=== PATIENT | female | born 1990 | race Caucasian/White ===

== ENCOUNTER 2016-06-28 10:09 | Emergency (ER) | payer SELFPAY ==
[2016-06-28 10:12] VITALS: BP 130/73; PULSE 111; TEMP 99.7; BMI 30.9
--- NOTE | 2016-06-28 10:31 | PDOC ---
History of Present Illness - General Chief Complaint: Sore Throat Stated Complaint: SORE THROAT Time Seen by Provider: 06/28/16 10:25 History Source: Patient Exam Limitations: No Limitations - History of Present Illness Initial Comments: 06/28/16 11:34 Chief complaint: Sore throat since yesterday History of present illness: Pt.is a 26-year-old female with no significant medical problems here today complaining of sore throat since yesterday. Patient also reports having slight nasal congestion. Patient denies having any fever. Patient denies any shortness of breath or difficulty swallowing. Patient denies any recent travel or sick contacts. Timing/Duration: getting worse Severity: moderate Associated Symptoms: reports: other (w) Past History - Past Medical History Allergies/Adverse Reactions: Allergies Allergy/AdvReac Type Severity Reaction Status Date / Time nuts Allergy Uncoded 06/28/16 10:12 Home Medications: Ambulatory Orders Penicillin V Potassium [Pen Vee K -] 500 mg PO QID #28 tablet 06/28/16 - Psycho/Social/Smoking Cessation Hx Anxiety: No Suicidal Ideation: No Smoking History: Never smoked Have you smoked in the past 12 months: No Information on smoking cessation initiated: No Hx Alcohol Use: No Substance Use Type: None Review of Systems - Review of Systems Able to Perform ROS?: Yes Constitutional: No: Symptoms Reported HEENTM: Yes: Nose Congestion (slight ), Throat Pain Respiratory: No: Symptoms reported Cardiac (ROS): No: Symptoms Reported ABD/GI: No: Symptoms Reported Musculoskeletal: No: Symptoms Reported Integumentary: No: Symptoms Reported Neurological: No: Symptoms reported *Physical Exam - Vital Signs Last Vital Signs Temp Pulse Resp BP Pulse Ox 99.7 F H 111 H 18 130/73 99 06/28/16 10:10 06/28/16 10:10 06/28/16 10:10 06/28/16 10:10 06/28/16 10:10 - Physical Exam General Appearance: Yes: Appropriately Dressed HEENT: positive: TMs Normal, Pharyngeal Erythema, Tonsillar Erythema (with no uvular deviation ), Nasal Congestion. negative: Tonsillar Exudate, Rhinorrhea, Sinus Tenderness Neck: positive: Lymphadenopathy (R), Lymphadenopathy (L) Respiratory/Chest: positive: Lungs Clear, Normal Breath Sounds. negative: Chest Tender, Respiratory Distress Cardiovascular: positive: Regular Rhythm, Regular Rate, S1, S2 Integumentary: positive: Normal Color Neurologic: positive: Alert, Normal Response, Responsive Medical Decision Making - Medical Decision Making 06/28/16 10:55 06/28/16 11:36 Pt.is a 26-year-old female with no significant medical problems here today complaining of sore throat since yesterday. Patient also reports having slight nasal congestion. Patient denies having any fever. Patient denies any shortness of breath or difficulty swallowing. Patient denies any recent travel or sick contacts. tonsillitis r/o strep throat PLAN: throat C & S rapid + for beta hemolytic strep group A decadron 10 mg po now ibuprofen 400 mg po now Penicillin VK 500 mg qid for 7 days 06/28/16 11:44 *DC/Admit/Observation/Transfer Diagnosis at time of Disposition: Acute streptococcal tonsillitis Qualifiers: Streptococcal tonsillitis recurrence: non-recurrent Qualified Code(s): J03.00 - Acute streptococcal tonsillitis, unspecified - Discharge Dispostion Disposition: HOME Condition at time of disposition: Stable - Prescriptions Prescriptions: Penicillin V Potassium [Pen Vee K -] 500 mg PO QID #28 tablet - Patient Instructions Additional Instructions: Drink a lot of Fluids and rest Ibuprofen as needed as 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
[2016-06-28] MEDS ORDERED: DEXAMETHASONE LIQUID 0.5 MG/5 ML 240 ML BULK BOTTLE PO ONE (10:55)
[2016-06-28] MEDS ORDERED: IBUPROFEN 100 MG/5 ML UNIT DOSE CUPS PO ONE (10:55)
[2016-06-28] MEDS ORDERED: IBUPROFEN 100 MG/5 ML UNIT DOSE CUPS ONE (11:03)
[2016-06-28] MEDS ORDERED: DEXAMETHASONE SOD PHOSPHATE 10 MG/1 ML VIAL ONE (11:03)
== END 2016-06-28 12:00 | disposition home or self-care (01) ==
LOC: JERFT 10:09
DX: J03.00 Acute streptococcal tonsillitis, unspecified (principal); B95.0 Streptococcus, group A, as the cause of diseases classified elsewhere
CPT/HCPCS: 87070; 87430; 99281-25

== ENCOUNTER 2017-03-14 20:53 | Emergency (ER) | payer OTHER ==
[2017-03-14 21:06] VITALS: BMI 35.3
--- NOTE | 2017-03-14 21:13 | PDOC ---
History of Present Illness - General Chief Complaint: Cold Symptoms Stated Complaint: COUGH Time Seen by Provider: 03/14/17 20:57 History Source: Patient Exam Limitations: No Limitations - History of Present Illness Initial Comments: This is a 27-year-old female who comes in complaining of cough, congestion and some mild shortness of breath. Patient is 38 weeks and 1 day . In addition to her respiratory complaints she is also saying that she is having some irregular but mild contractions. Patient denies any vaginal rivera of fluid or discharge vaginally. Patient denies any shortness of breath, chest pain fevers or chills. PAST MEDICAL HISTORY: no significant history PAST SURGICAL HISTORY: no significant history FAMILY HISTORY: no pertinant history SOCIAL HISTORY: Pt lives with family and is employed. MEDICATIONS: reviewed ALLERGIES: As per nursing notes Review of Systems General: No fevers or chills, no weakness, no weight loss HEENT: No change in vision. No sore throat,. No ear pain CardioVascular: No chest pain or shortness of breath Respiratory: +cough, no wheezing. Gastrointestinal: no nausea, vomitting, diarrhea or constipation, No rectal bleeding Genitourinary: No dysuria, hematuria, or frequency Musculoskeletal: No joint or muscle pain or swelling Neurologic: No headache, vertigo, dizziness or loss of consciousness Psychiatric: nor depression Skin: No rashes or easy bruising Endocrine: no increased thirst or abnormal weight change Allergic: no skin or latex allergy All other systems reviewed and normal Exam: General: Well-nourished well-developed individual, no acute distress HEENT: Throat: Normal, tonsils normal, no erythema or exudate Neck: Supple, no meningeal signs, no lymphadenopathy Eyes::Pupils equal reactive and round, extraocular motion intact Chest: Nontender to palpation Cardiac: S1-S2 normal, regular rate and rhythm, no murmurs rubs or gallops Respiratory: There are a few rhonchi left base with an occasional mild expiratory wheeze. Abdomen: Soft, nondistended, normal bowel sounds, nontender to palpation diffusely Extremities: Warm, dry, no cyanosis, clubbing, or edema Skin: No rashes Neuro: Alert and oriented x3, CN II - XII intact, nonfocal exam with normal strength, normal sensation, normal reflexes, normal gait, Psych: Normal mood and affect Assessment and plan: This is a 27-year-old female who is 38 weeks and 1 day who comes in with upper respiratory tract type symptoms. Patient did have some rhonchi and mild wheezing on exam. Patient was given an albuterol nebulizer and started on azithromycin for possible bronchitis versus pneumonia. Because of patient's contractions she will be transferred over to [facility], [place], labor and delivery for monitoring to rule out early labor. Past History - Past Medical History Allergies/Adverse Reactions: Allergies Allergy/AdvReac Type Severity Reaction Status Date / Time nuts Allergy Uncoded 06/28/16 10:12 Home Medications: Ambulatory Orders Albuterol Sulfate Inhaler - [Ventolin HFA Inhaler -] 1 - 2 inh PO Q4H #1 inhaler 03/14/17 Azithromycin 250 mg PO DAILY #4 tablet 03/14/17 COPD: No Other medical history: 38 WEEKS - Suicide/Smoking/Psychosocial Hx Smoking History: Never smoked Have you smoked in the past 12 months: No Hx Alcohol Use: No Substance Use Type: None *Physical Exam - Vital Signs Last Vital Signs Temp Pulse Resp BP Pulse Ox 99.4 F 114 H 18 119/78 99 03/14/17 21:04 03/14/17 21:04 03/14/17 21:04 03/14/17 21:04 03/14/17 21:04 *DC/Admit/Observation/Transfer Diagnosis at time of Disposition: Asthmatic bronchitis Qualifiers: Asthma severity: mild Asthma complication type: uncomplicated - Discharge Dispostion Condition at time of disposition: Stable - Referrals - Patient Instructions Additional Instructions: Take azithromycin 1 tablet a day for the next 4 days. Use your inhaler 2 puffs as often as every 4-6 hours if needed for coughing and wheezing and shortness of breath. Return to the emergency department immediately with ANY new, persistent or worsening symptoms. Continue any medications as previously prescribed by your physician. You should follow up with your primary doctor as soon as possible regarding today's emergency department visit. . Please make sure your doctor reviews the results of your emergency evaluation. Thank you for coming to the Emergency Department today for your care. It was a pleasure to see you today. Please note that your evaluation is INCOMPLETE until you follow-up with your doctor. - Post Discharge Activity
[2017-03-14] MEDS ORDERED: ALBUTEROL SO4 0.083% IH SOL 2.5 MG/3 ML VIAL.NEB. NEB ONE ×2 (21:23→21:37)
[2017-03-14] MEDS ORDERED: AZITHROMYCIN 500 MG TABLET ONE (21:23)
[2017-03-14] MEDS ORDERED: AZITHROMYCIN IVPB 500 MG in DEXTROSE 5%-WATER - 250 ML IVPB ONE (21:39)
[2017-03-14 23:26] VITALS: BP 112/81; TEMP 98
[2017-03-14 23:53] VITALS: PULSE 105
== END 2017-03-14 23:20 | disposition home or self-care (01) ==
LOC: FER 20:53
DX: O26.893 Other specified pregnancy related conditions, third trimester (principal); Z3A.38 38 weeks gestation of pregnancy; J45.909 Unspecified asthma, uncomplicated
CPT/HCPCS: 99281-25

== ENCOUNTER 2017-03-22 13:25 | Inpatient (IN) | payer OTHER ==
[2017-03-22 15:35] LABS: BASO % 0.3 % (0-2.0); EOS % 0.5 % (0-4.5); HEMATOCRIT 36.1 % (32.4-45.2); HEMOGLOBIN 11.4 GM/dL (10.7-15.3); MCHC 31.5 g/dl (32.0-36.0); MEAN PLT VOLUME 9.6 fl (7.5-11.1); MONO % 5.8 % (3.8-10.2); NEUT % 80.4 % (42.8-82.8); PLATELET COUNT 194 K/MM3 (134-434); RBC 4.95 M/mm3 (3.60-5.2); RDW 17.3 % (11.6-15.6); WHITE BLOOD COUNT 8.3 K/mm3 (4.0-10.0)
[2017-03-22 15:41] VITALS: BMI 35.3
[2017-03-22] MEDS ORDERED: DEXTROSE 5%-LACTATED RINGERS 1,000 ML IV SCH (15:45)
--- NOTE | 2017-03-22 15:49 | HP ---
Past Medical History - Admission Chief Complaint: contractions History of Present Illness: 27yo LMP 06/06/16 EDC 03/27/17 by 14 week sono SIUP at 39.2 weeks gestation persents with c/o contractions. No loss of fluid, no vaginal bleeding , reports good movement. PNC at [facility] care significant for transfer of care at 26 weeks, loss of significant other in 01/2017. labs reviewed: Pt O+/ab negative/hgb aa/rubella immune/lead <1, rpr negative, heb bsag negative , quad neg, quantiferon negative, gbs negative, gc/chlam negative History Source: Patient, Medical Record Limitations to Obtaining History: No Limitations - Past Medical History Pulmonary: Yes: Asthma ...: 4 ...Para: 1 ...Term: 1 ...: 0 ...Spon : 1 ...Induced : 1 ...Multiple Gestation: 0 ...LMP: 06/06/16 ... Weeks Gestation by Dates: 39.2 ...EDC by Sono: 03/27/17 Heme/Onc: Yes: Anemia - Past Surgical History Past Surgical History: Yes: None Hx Myomectomy: No Hx Transabdominal Cerclage: No - Smoking History Smoking history: Never smoked Have you smoked in the past 12 months: No - Alcohol/Substance Use Hx Alcohol Use: No Home Medications - Allergies Allergies/Adverse Reactions: Allergies Allergy/AdvReac Type Severity Reaction Status Date / Time cashew nut Allergy Intermediate Swelling Verified 03/22/17 15:01 No Known Drug Allergies Allergy Verified 03/22/17 14:55 - Home Medications Home Medications: Ambulatory Orders Albuterol Sulfate Inhaler - [Ventolin HFA Inhaler -] 1 - 2 inh PO Q4H #1 inhaler 03/14/17 Ferrous Sulfate 325 mg PO BID 03/22/17 Vitamins (Sjr) - 1 tab PO DAILY 03/22/17 Family Disease History - Family Disease History Family History: Unremarkable Review of Systems - Review of Systems Constitutional: reports: No Symptoms Eyes: reports: No Symptoms HENT: reports: No Symptoms Neck: reports: No Symptoms Cardiovascular: reports: No Symptoms Respiratory: reports: No Symptoms Gastrointestinal: reports: No Symptoms Genitourinary: reports: Pain Physical Exam - Maternity Vital Signs: Vital Signs Temperature 99.1 F 01/07/18 15:29 Pulse Rate 75 03/22/17 15:29 Respiratory Rate 18 03/22/17 15:29 Blood Pressure 139/70 03/22/17 15:29 O2 Sat by Pulse Oximetry (%) Constitutional: Yes: Well Nourished Eyes: Yes: WNL HENT: Yes: WNL Neck: Yes: WNL - Abdominal Exam/OB Fundal Height: 39 Number of Fetuses: Single Presentation: Vertex Contractions: Yes Regularity: Irregular Intensity: Mild/Mod Monitor Mode: External Heart Rate (range): 120 mod variability Category: II Accelerations: Uniform Decelerations: Variable - Vaginal Exam/OB Vaginal Bleediing: No Speculum Exam: No Dilatation (cm): 4-5 Effacement (%): 80 Amniotic Membrane Status: Bulging (AROM-scant fluid) Presentation: Vertex/Position Station: -2 - Physical Exam Musculoskeletal: Yes: WNL Extremities: Yes: WNL Edema: No Integumentary: Yes: WNL Hemorrhage Risk Assessment - Risk Factors Medium Risk Factors: Yes: None High Risk Factors: Yes: None Risk Score: 1 Risk Level: Medium Risk Problem List - Problems (1) Labor and delivery, indication for care Code(s): O75.9 - COMPLICATION OF LABOR AND DELIVERY, UNSPECIFIED Assessment/Plan 27yo at 39.2 in labor admit to labor and delivery gbs negative category 2 tracing-occasional variables (mild); arom with scant fluid; if persists then plan for amnioinfusion pain management as needed expectant management Dr. Nobles
[2017-03-22 15:50] LABS: INR 0.99 (0.82-1.09); PROTHROMBIN TIME (PATIENT) 11.2 SEC (9.98-11.88)
[2017-03-22 15:52] LABS: ACTIVATED PTT 26.9 SECONDS (26.9-34.4)
--- NOTE | 2017-03-22 15:54 | DS ---
Physical Exam-DOCTOR OSTEOPATHIC Vital Signs: Vital Signs Temperature 99.1 F 03/22/17 15:29 Pulse Rate 75 03/22/17 15:29 Respiratory Rate 18 03/22/17 15:29 Blood Pressure 139/70 03/22/17 15:29 O2 Sat by Pulse Oximetry (%) Constitutional: Yes: Well Nourished, No Distress, Calm Eyes: Yes: WNL, Conjunctiva Clear, EOM Intact HENT: Yes: WNL, Atraumatic, Normocephalic Neck: Yes: WNL, Supple, Trachea Midline Cardiovascular: Yes: WNL, Regular Rate and Rhythm Respiratory: Yes: WNL, Regular, CTA Bilaterally Gastrointestinal: Yes: WNL ...Rectal Exam: Yes: WNL Renal/: Yes: WNL Breast(s): Yes: WNL Musculoskeletal: Yes: WNL Extremities: Yes: WNL Integumentary: Yes: WNL Neurological: Yes: WNL, Alert, Oriented ...Motor Strength: WNL Psychiatric: Yes: WNL, Alert, Oriented Labs: CBC, BMP 03/22/17 15:15 Delivery, Single - [place] Feeding Plan Initial Plan: Elected not to breastfeed exclusively throughout hospitalization Discharge Summary Reason For Visit: FOR DELIVERY Current Active Problems Labor and delivery, indication for care (Acute) - Instructions - Home Medications Comprehensive Discharge Medication List: Ambulatory Orders Albuterol Sulfate Inhaler - [Ventolin HFA Inhaler -] 1 - 2 inh PO Q4H #1 inhaler 03/14/17 Ferrous Sulfate 325 mg PO BID 03/22/17 Vitamins (Sjr) - 1 tab PO DAILY 03/22/17
[2017-03-22 16:33] LABS: ANION GAP 10 (8-16); BLOOD UREA NITROGEN 8 mg/dL (7-18); CALCIUM 8.2 mg/dL (8.5-10.1); CHLORIDE 105 mmol/L (98-107); CO2 25 mmol/L (21-32); CREATININE 0.7 mg/dL (0.55-1.02); GLUCOSE,RANDOM 106 mg/dL (74-106); POTASSIUM 3.8 mmol/L (3.5-5.1); SODIUM 140 mmol/L (136-145)
--- NOTE | 2017-03-22 16:43 | PN ---
Progress Note, Labor Vaginal Exam #2 Labor Exam Date: 03/22/17 Labor Exam Time: 16:42 Heart Rate (range): 120 mod variability Dilatation: 5 Effacement (%): 90 Amniotic Membrane Status: Ruptured Presentation: Vertex/Position Station: -1 Remarks: 27yo at term in labor pain management as needed expectant management for now Dr. mcleod
--- NOTE | 2017-03-22 17:04 | PN ---
Progress Note, Labor Vaginal Exam #3 Labor Exam Date: 03/22/17 Labor Exam Time: 17:00 Heart Rate (range): 120 mod kade +accel; variable decel to 80s Dilatation: 5-6 Effacement (%): 90 Amniotic Membrane Status: Ruptured Station: -1 Remarks: pt with repetitive variables; now julio cesar q2-3 minutes. ISE and IUPC placed. Amnioinfusion started with 400ml bolus of lr then maintenance of 100ml/ hr, to gravity. Improvement in variables noted with amnioinfusion. pain management as needed. Continue expectant management
--- NOTE | 2017-03-22 18:04 | PN ---
Progress Note, Labor Vaginal Exam #4 Labor Exam Date: 03/22/17 Labor Exam Time: 18:03 Heart Rate (range): 120 mod variability +accel; early and variable dec Dilatation: 7 Effacement (%): 100 Amniotic Membrane Status: Ruptured Presentation: Vertex/Position Station: 0 Remarks: ISE replaced continue expectant management Dr. Nobles
[2017-03-22] MEDS ORDERED: LIDOCAINE HCL 1% PRESERVATIVE FREE - 30ML VIAL ONE (18:27)
[2017-03-22] MEDS ORDERED: OXYTOCIN 20 UNITS in 0.9% NS 20 UNIT/1,000 ML INFUS.BAG IV ONE (18:27)
[2017-03-22] MEDS ORDERED: BENZOCAINE 20% 57 GM BOTTLE TP PRN (19:03)
[2017-03-22] MEDS ORDERED: BISACODYL 10 MG SUPP.RECT RC PRN (19:03)
[2017-03-22] MEDS ORDERED: METHYLERGONOVINE MALEATE 0.2 MG/1 ML AMP IM PRN (19:03)
[2017-03-22] MEDS ORDERED: oxyCODONE HCL 5 MG TABLET PO PRN (19:03)
[2017-03-22] MEDS ORDERED: ACETAMINOPHEN 325 MG TABLET (FP) PO PRN (19:03)
[2017-03-22] MEDS ORDERED: WITCH HAZEL 50% (TUCKS) 40 PAD/JAR PAD TP PRN (19:03)
[2017-03-22] MEDS ORDERED: BENZOCAINE 28 GM HEMORRHOIDAL OINTMENT TP PRN (19:03)
--- NOTE | 2017-03-22 19:03 | PN ---
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 Tight nuchal cord cut and clamped on perineum. Anterior shoulder and body delivered spontaneously and without difficulty. Placenta delivered intact with 3vc. Membranes noted to be in uterus; manual exploration performed and membranes. 1st degree vaginal laceration repaired and small labial laceration with 2.0 vicryl with excellent hemostasis and taoist of anatomy. Fundus firm, vault empty. Mother stable. Baby to N
--- NOTE | 2017-03-22 19:08 | DS ---
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: Vital Signs Temperature 97.8 F 03/22/17 18:00 Pulse Rate 66 03/22/17 18:00 Respiratory Rate 18 03/22/17 18:00 Blood Pressure 145/83 03/22/17 18:00 O2 Sat by Pulse Oximetry (%) Constitutional: Yes: Well Nourished Eyes: Yes: WNL, Conjunctiva Clear, EOM Intact HENT: Yes: WNL, Atraumatic, Normocephalic Neck: Yes: WNL, Supple, Trachea Midline Cardiovascular: Yes: WNL, Regular Rate and Rhythm Respiratory: Yes: WNL, Regular, CTA Bilaterally Gastrointestinal: Yes: WNL ...Rectal Exam: Yes: WNL Renal/: Yes: WNL Breast(s): Yes: WNL Musculoskeletal: Yes: WNL Extremities: Yes: WNL Integumentary: Yes: WNL Neurological: Yes: WNL, Alert, Oriented ...Motor Strength: WNL Psychiatric: Yes: WNL, Alert, Oriented Labs: CBC, BMP 03/22/17 15:15 03/22/17 15:15 Delivery - Delivery Vaginal Delivery: No Problems Type of Anesthesia: Local Episiotomy/Laceration: 1st degree EBL (cc): 400 Delivery, Single - Stages of Labor Placenta: Yes: Spontaneous, Uterine Exploration (small amount of membranes removed), Normal Configuration - 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 You may walk unlimited kj of and climb stairs. You may resume driving the car when you feel safe and comfortable behind the wheel. No sexual activity as instructed. Wound care If you have a bandage, leave it on, and keep dry for 48-72 hours. After that time discard the outer bandage. If they are tapes on the skin under the out of bandage leave them in place. They will peel off in the next 7 to 10 days. Do Not Peel them off. You may shower the day after surgery. If there are tapes present on the skin, you may shower over them. Diet There are no dietary restrictions. Eat healthy, high-fiber foods. Drink 6 to 8 glasses of liquid each day. This will assist in keeping your bowels are regular. Pain management You may take Tylenol or acetaminophen or Ibuprofen (for example, Motrin, Advil etc.) from my pain prescription medication is ordered should be taken as prescribed for moderate to severe pain. Call MD for any of the following: Severe pain not relieved by medication Fever of 101 or higher Excessive bleeding or drainage on dressing Inability to urinate Disposition: HOME - Home Medications Comprehensive Discharge Medication List: Ambulatory Orders Albuterol Sulfate Inhaler - [Ventolin HFA Inhaler -] 1 - 2 inh PO Q4H #1 inhaler 03/14/17 Ferrous Sulfate 325 mg PO BID 03/22/17 Vitamins (Sjr) - 1 tab PO DAILY 03/22/17
[2017-03-22] MEDS ORDERED: ceFAZolin 2 GRAM PREMIX BAG IVPB ONE (19:09)
[2017-03-22] MEDS ORDERED: ceFAZolin SODIUM 1 GM VIAL ONE (19:12)
[2017-03-22] MEDS ORDERED: OXYTOCIN 20 UNITS in 0.9% NS 20 UNIT/1,000 ML INFUS.BAG IV SCH (19:15)
[2017-03-22] MEDS ORDERED: CEFAZOLIN 2 GM in DEXTROSE 5%-WATER - 100 ML IVPB ONE (19:30)
[2017-03-22 19:37] LABS: VENOUS PC02 40.9 mmHg (38-52); VENOUS PH 7.39 (7.32-7.42)
[2017-03-22 19:38] LABS: VENOUS PO2 35.8 mmHg (28-48)
--- NOTE | 2017-03-23 08:34 | PN ---
Post Progress Note Post Day: 1 Type of Delivery: Vital Signs: Vital Signs Temperature 98.1 F 03/23/17 05:37 Pulse Rate 80 03/23/17 05:37 Respiratory Rate 18 03/23/17 05:37 Blood Pressure 119/60 03/23/17 05:37 O2 Sat by Pulse Oximetry (%) 99 03/22/17 20:00 Uterus: Yes: Fundus Firm Abdomen/GI: Yes: Abdomen soft Lochia: Yes: Rubra Perineum: Yes: Intact Activity: Ambulating - Labs Labs: CBC WBC 8.3 K/mm3 (4.0-10.0) 03/22/17 15:15 RBC 4.95 M/mm3 (3.60-5.2) 03/22/17 15:15 Hgb 11.4 GM/dL (10.7-15.3) 03/22/17 15:15 Hct 36.1 % (32.4-45.2) 03/22/17 15:15 MCV 73.0 fl (80-96) L 03/22/17 15:15 MCH 23.0 pg (25.7-33.7) L 03/22/17 15:15 MCHC 31.5 g/dl (32.0-36.0) L 03/22/17 15:15 RDW 17.3 % (11.6-15.6) H 03/22/17 15:15 Plt Count 194 K/MM3 (134-434) 03/22/17 15:15 MPV 9.6 fl (7.5-11.1) 03/22/17 15:15 Neutrophils % 80.4 % (42.8-82.8) 03/22/17 15:15 Lymphocytes % 13.0 % (8-40) 03/22/17 15:15 Monocytes % 5.8 % (3.8-10.2) 03/22/17 15:15 Eosinophils % 0.5 % (0-4.5) 03/22/17 15:15 Basophils % 0.3 % (0-2.0) 03/22/17 15:15 Assessment/Plan ppd#2 no issues stable await labs
[2017-03-23 08:47] LABS: BASO % 0.4 % (0-2.0); HEMOGLOBIN 10.6 GM/dL (10.7-15.3); LYMPH % 14.9 % (8-40); MCH 22.7 pg (25.7-33.7); MCHC 31.1 g/dl (32.0-36.0); MEAN PLT VOLUME 9.4 fl (7.5-11.1); MONO % 7.3 % (3.8-10.2); NEUT % 76.4 % (42.8-82.8); PLATELET COUNT 181 K/MM3 (134-434); RBC 4.65 M/mm3 (3.60-5.2); RDW 17.6 % (11.6-15.6); WHITE BLOOD COUNT 11.7 K/mm3 (4.0-10.0)
[2017-03-23] MEDS: IBUPROFEN 600 MG TABLET (FP) PO PRN ×2 (09:10→17:33)
[2017-03-23] MEDS: PRENATAL VITAMINS W/ FOLIC ACID TABLET (FP) PO SCH (09:10)
[2017-03-23] MEDS: FERROUS SO4 325 MG TABLET (FP) PO SCH ×3 (09:10→17:33)
[2017-03-23] MEDS ORDERED: SENNOSIDES/DOCUSATE COMBO (SENNA PLUS) TABLET (UD) PO PRN (22:00)
--- NOTE | 2017-03-24 08:11 | PN ---
Post Progress Note - Subjective Subjective: 27 yo Para 2 status post vaginal delivery, seen and evaluated. Doing well Post Day: 2 Type of Delivery: Vital Signs: Vital Signs Temperature 98.0 F 03/23/17 21:24 Pulse Rate 78 03/23/17 21:24 Respiratory Rate 20 03/23/17 21:24 Blood Pressure 127/64 03/23/17 21:24 O2 Sat by Pulse Oximetry (%) 99 03/22/17 20:00 Breast Exam: Yes: Soft Uterus: Yes: Fundus Firm Abdomen/GI: Yes: Abdomen soft, Tolerating PO Lochia: Yes: Rubra Lochia, amount: Small Extremities: Yes: Calves non-tender Activity: Ambulating - Labs Labs: CBC WBC 11.7 K/mm3 (4.0-10.0) H D 03/23/17 07:00 RBC 4.65 M/mm3 (3.60-5.2) 03/23/17 07:00 Hgb 10.6 GM/dL (10.7-15.3) L 03/23/17 07:00 Hct 34.0 % (32.4-45.2) 03/23/17 07:00 MCV 73.0 fl (80-96) L 03/23/17 07:00 MCH 22.7 pg (25.7-33.7) L 03/23/17 07:00 MCHC 31.1 g/dl (32.0-36.0) L 03/23/17 07:00 RDW 17.6 % (11.6-15.6) H 03/23/17 07:00 Plt Count 181 K/MM3 (134-434) 03/23/17 07:00 MPV 9.4 fl (7.5-11.1) 03/23/17 07:00 Neutrophils % 76.4 % (42.8-82.8) 03/23/17 07:00 Lymphocytes % 14.9 % (8-40) 03/23/17 07:00 Monocytes % 7.3 % (3.8-10.2) 03/23/17 07:00 Eosinophils % 1.0 % (0-4.5) D 03/23/17 07:00 Basophils % 0.4 % (0-2.0) 03/23/17 07:00 Assessment/Plan Status post Normal vaginal delivery Stable D/C home F/U in clinic in 6 weeks
[2017-03-24] MEDS: PRENATAL VITAMINS W/ FOLIC ACID TABLET (FP) PO SCH (09:16)
[2017-03-24] MEDS: FERROUS SO4 325 MG TABLET (FP) PO SCH ×2 (09:16→11:58)
[2017-03-24 11:00] VITALS: BP 130/80; PULSE 73; TEMP 98.1
== END 2017-03-24 14:00 | disposition home or self-care (01) | DRG 560 ==
LOC: JDEL 13:25 → JLDR 14:30 → J3W 20:30
PROVIDERS: ADMIT Obstetrics & Gynecology; ATTEND Obstetrics & Gynecology
PROC: 0HQ9XZZ Repair Perineum Skin, External Approach (ICD-10-PCS; principal; 2017-03-22)
PROC: 10E0XZZ Delivery of Products of Conception, External Approach (ICD-10-PCS; 2017-03-22)
DX: O70.0 First degree perineal laceration during delivery (principal); Z3A.39 39 weeks gestation of pregnancy; Z37.0 Single live birth
CPT/HCPCS: 36415; 59409; 80048; 82803; 85025; 85610; 85730; 86593; 86850; 86900; 86901

== ENCOUNTER 2017-08-06 18:54 | Emergency (ER) | payer OTHER ==
[2017-08-06 19:01] VITALS: BP 123/72; PULSE 73; TEMP 98.3; BMI 36.0
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
[2017-08-06] MEDS ORDERED: ACETAMINOPHEN 1000 MG/100 ML VIAL (NON FORMULARY) IVPB ONE (19:26)
[2017-08-06] MEDS ORDERED: ACETAMINOPHEN INJECTION 100 ML IVPB ONE (19:36)
[2017-08-06 19:46] LABS: BASO % 0.5 % (0-2.0); EOS % 1.6 % (0-4.5); HEMATOCRIT 36.5 % (32.4-45.2); HEMOGLOBIN 12.3 GM/dl (10.7-15.3); LYMPH % 12.7 % (8-40); MCH 26.5 pg (25.7-33.7); MCHC 33.7 g/dl (32.0-36.0); MEAN CELL VOLUME 78.5 fl (80-96); MEAN PLT VOLUME 9.9 fl (7.5-11.1); MONO % 5.9 % (3.8-10.2); NEUT % 79.3 % (42.8-82.8); PLATELET COUNT 295 K/MM3 (134-434); RBC 4.65 M/mm3 (3.60-5.2); RDW 13.4 % (11.6-15.6); WHITE BLOOD COUNT 12.3 K/mm3 (4.0-10.8)
[2017-08-06 19:54] LABS: PH,URINE 5.5 (4.5-8); URINE APPEARANCE Clear; URINE BILIRUBIN Negative (NEGATIVE); URINE COLOR YELLOW; URINE GLUCOSE (UA) Negative (NEGATIVE); URINE KETONE Negative (NEGATIVE); URINE LEUK ESTERASE TRACE (NEGATIVE); URINE NITRITE Negative (NEGATIVE); URINE PROTEIN Trace (NEGATIVE); URINE UROBILINOGEN 0.2 (0.2-1.0)
[2017-08-06 19:59] LABS: HCG,QUALITATIVE URINE Negative
[2017-08-06 20:07] LABS: ALBUMIN 3.6 g/dl (3.5-5.0); ALK PHOS 88 U/L (32-92); ANION GAP 9 (8-16); BILIRUBIN,TOTAL 0.5 mg/dl (0.2-1.0); BLOOD UREA NITROGEN 18 mg/dl (7-18); CALCIUM 8.7 mg/dl (8.4-10.2); CHLORIDE 101 mmol/L (98-107); CO2 24 mmol/L (22-28); GLUCOSE,RANDOM 100 mg/dl (74-106); POTASSIUM 3.7 mmol/L (3.5-5.1); SGOT/AST 25 U/L (10-42); SGPT/ALT 27 U/L (10-40); SODIUM 134 mmol/L (136-145); TOT PROT 7.3 g/dl (6.4-8.3)
[2017-08-06 20:17] LABS: CREATININE 0.8 mg/dl (0.6-1.3)
[2017-08-06] MEDS ORDERED: morphine CARPU-JECT 4 MG/1 ML DISP.SYRIN IVPUSH ONE (21:35)
[2017-08-06] MEDS ORDERED: morphine SULFATE 4 MG/ML VIAL ONE (21:45)
[2017-08-06 22:30] LABS: EPI CELLS FEW /HPF; URINE BACTERIA FEW /hpf (NEGATIVE); URINE RBC 0-2 /hpf (0-3)
== END 2017-08-06 22:35 | disposition home or self-care (01) ==
LOC: FER 18:54
PROC: 3E033NZ Introduction of Analgesics, Hypnotics, Sedatives into Peripheral Vein, Percutaneous Approach (ICD-10-PCS; principal; 2017-08-06)
DX: R10.32 Left lower quadrant pain (principal)
CPT/HCPCS: 36415; 74177-TC; 80053; 81003; 81015; 84703; 85025; 99282-25; J0131

== ENCOUNTER 2018-11-16 12:48 | Emergency (ER) | payer OTHER ==
[2018-11-16 12:53] VITALS: BMI 31.2
--- NOTE | 2018-11-16 14:18 | PDOC ---
Attending Attestation - Resident Resident Name: Neelam Sanderson - ED Attending Attestation I have performed the following: I have examined & evaluated the patient, The case was reviewed & discussed with the resident, I agree w/resident's findings & plan, Exceptions are as noted - HPI HPI: 11/16/18 14:17 28y F hx of gerd presents with abd pain. pt was in her USOH until this morning aroound 9am - states she started feeling a sharp epigastric pain that lasted for a efw min but waxes and wanes without associated n/v, fever/chills, sob, connolly , hemoptysis. no radiation of the back pain. pt notes a hx of acid reflux and thought it may have been that as she had pizza last night, but notes her sypmtoms with acid reflux is more in the throat. pt notes pain is improved currently. GENERAL: The patient is awake, alert, and fully oriented, Nontoxic - in no acute distress. LUNGS: Breath sounds equal, clear to auscultation bilaterally. No wheezes, no rhonchi, no rales. HEART: Regular rate and rhythm, normal S1 and S2 without murmur, rub or gallop. ABDOMEN: Soft, nontender, No guarding, no rebound. No CVA tendernessedema. SKIN: Warm, Dry, normal turgor, ddx - gall stones vs acid reflux will ck ua to r/o US to screen for gall stones no abd ttp currently will dfer lab work - Physicial Exam PE: 11/16/18 19:51 see above - Medical Decision Making 11/16/18 18:59 pts labs reviewed pts US noted for some galls tones and possible cholecytistis - however clinically pt does not seem to have any current tenderness to suggest an acute cholecystitis picture. lfts normal - no clinical or laboratory signs of obstructed stone will give abx and will discuss with surgery regarding disposition 11/16/18 19:54 case dw surgery br dr sanderson- as pt is asymptmatic, with no abd pain/tenderness - recommended out patient management and fu with dr. douglass
--- NOTE | 2018-11-16 14:19 | PDOC ---
History of Present Illness - General Chief Complaint: Pain, Acute Stated Complaint: ABD PAIN Time Seen by Provider: 11/16/18 13:58 - History of Present Illness Initial Comments: Madeleine Daley is an otherwise healthy 28yo woman who presents with epigastric discomfort since this morning; she additionally reports feeling "acid reflux" intermittently for the past 2-3 weeks. She says that her reflux typically feels like something stuck in her throat, and she previously only experienced this only when . This morning, she has a sensation of "discomfort" at her epigastrium. She states that she also has "little stabs of pain" in the same area. She denies any associated nausea, vomiting, change in bowel habits, PO intolerance, SOB, chest pain, right or left-sided abdominal pain, or any other recent symptoms. Last night she was feeling well and went out for [employer] with a friend. She denies any alcohol use last night. Ms Daley tried drinking water and taking a tums at home without relief. She states that she was feeling more uncomfortable over the morning and decided to present for evaluation. Past History - Past Medical History Allergies/Adverse Reactions: Allergies Allergy/AdvReac Type Severity Reaction Status Date / Time cashew nut Allergy Intermediate Swelling Verified 11/16/18 12:53 No Known Drug Allergies Allergy Verified 11/16/18 12:53 Home Medications: Ambulatory Orders NK [No Known Home Medication] 11/16/18 Asthma: No Cancer: No Cardiac Disorders: No CVA: No COPD: No Diabetes: No HTN: No Seizures: No Thyroid Disease: No - Suicide/Smoking/Psychosocial Hx Smoking History: Never smoked Have you smoked in the past 12 months: No Number of Cigarettes Smoked Daily: 1 Information on smoking cessation initiated: No 'Breaking Loose' booklet given: 08/06/17 Hx Alcohol Use: No Drug/Substance Use Hx: No Substance Use Type: Alcohol Hx Substance Use Treatment: No Review of Systems - Review of Systems Comments:: General: No fevers, no chills, no weight or appetite change, no malaise HEENT: No changes in vision, no changes in hearing, no congestion, no sore throat CV: No chest pain, no palpitations, no LE edema Pulm: No SOB, no cough, no wheezing GI: No nausea or vomiting, no change in bowel habits, no melena. See HPI : No frequency, no urgency, no dysuria Musc: No back pain, no joint swelling, no recent injury Skin: No rash, no lesions, no erythema Endo: No excessive thirst, no heat/cold intolerance Heme: No unusual bruising or bleeding, no swollen glands Neuro: No syncope, no numbness/tingling, no focal weakness Vasc: No claudication Psych: No recent change in mood, no SI or HI *Physical Exam - Vital Signs Last Vital Signs Temp Pulse Resp BP Pulse Ox 98.0 F 74 16 131/92 100 11/16/18 12:51 11/16/18 12:51 11/16/18 12:51 11/16/18 12:51 11/16/18 12:51 - Physical Exam Comments: General: Comfortable, no acute distress HEENT: PERRL, EOMI, MMM, voice normal, normal neck ROM Cards: RRR, no murmur appreciated Pulm: Comfortable on room air, clear to auscultation bilaterally Abd: Soft, nondistended. Mild epigastric discomfort w/ palpation : No CVA tenderness Ext: Atraumatic. No LE edema. ROM intact. WWP Skin: Normal color, no rashes or lesions Neuro: A&Ox3, CN grossly intact, normal speech, motor/sensory grossly intact and symmetric Psych: Mood appropriate to situation ED Treatment Course - LABORATORY CBC & Chemistry Diagram: 11/16/18 17:45 11/16/18 17:45 Medical Decision Making - Medical Decision Making 11/16/18 14:13 Madeleine Daley is an otherwise healthy 28yo woman who presents with epigastric discomfort since this morning after 2-3 weeks of acid reflux symptoms and greasy food last night. She denies any associated symptoms. - Abdominal exam w/o any RUQ, LUQ, or lower abdominal TTP - Most likely GERD/gastritis, especially given recent reflux symptoms and greasy food yesterday - Pt reports symptoms previously only when , will check urine preg - US to evaluate gallbladder, though does not sound like gallstones w/o right sided pain or nausea/vomiting - Pantoprazole, maalox for symptoms 11/16/18 17:15 - US with multiple gallstones, wall thickening, pericholeystic fluid suggestive of acute cholecystitis - Currently asymptomatic - CBC, CMP, lipase, coags, T&S ordered 11/16/18 19:01 - Labs reviewed. No significant abnormalities - Given US findings, will consult surgery for recommendations. Call to Dr Merino 11/16/18 20:15 - Spoke to Dr Healy. Feels that given normal labs, benign exam patient can be discharged home and follow up as an outpatient for cholecystectomy - Discussed with Ms Daley; agrees with this plan. Reports that she is moving to [place] tomorrow afternoon, will follow up with a doctor after moving. Discussed with Niles Kerns and Kayla Sanderson PGY2 *DC/Admit/Observation/Transfer Diagnosis at time of Disposition: Biliary colic - Discharge Dispostion Disposition: HOME Condition at time of disposition: Stable Decision to Admit order: No - Referrals Referrals: Freddie Mora MD, MD [Primary Care Provider] - - Patient Instructions Printed Discharge Instructions: DI for Gallstones Additional Instructions: Discharge Instructions: You were seen in the emergency department for abdominal pain. You were found to have gallstones and gallbladder irritation. You will most likely need your gallbladder taken out at some point, but you will be able to schedule this as an outpatient. Home Care and Follow Up: - Follow a low fat diet at home. Avoid greasy or fried foods as these may cause more symptoms - Consider taking Pepcid or Xantac daily if you are having frequent heartburn - Follow up with a surgeon as soon as possible for additional management and to discuss surgery. - Seek immediate medical care at the closest hospital if you have worsening symptoms, severe right-upper or mid-upper abdominal pain, persistent nausea/ vomiting, you are vomiting bright green material, you have fever to 101F, or you have any other medical emergency. - Post Discharge Activity
[2018-11-16] MEDS ORDERED: MAG HYDROX/AL HYDROX/SIMETH 30 ML UNIT-DOSE CUP PO ONE (14:20)
[2018-11-16] MEDS ORDERED: PANTOPRAZOLE 40 MG TABLET (FP) PO ONE (14:20)
[2018-11-16] MEDS ORDERED: MAG HYDROX/AL HYDROX/SIMETH 30 ML UNIT-DOSE CUP ONE (14:25)
[2018-11-16] MEDS ORDERED: PANTOPRAZOLE 40 MG TABLET (FP) ONE (14:25)
[2018-11-16 18:04] LABS: BASO % 0.8 % (0-2.0); EOS % 1.1 % (0-4.5); HEMATOCRIT 40.5 % (32.4-45.2); LYMPH % 13.3 % (8-40); MCH 25.8 pg (25.7-33.7); MCHC 32.1 g/dl (32.0-36.0); MEAN CELL VOLUME 80.4 fl (80-96); MONO % 5.4 % (3.8-10.2); NEUT % 79.4 % (42.8-82.8); PLATELET COUNT 225 K/MM3 (134-434); RBC 5.04 M/mm3 (3.60-5.2); RDW 14.7 % (11.6-15.6); WHITE BLOOD COUNT 11.5 K/mm3 (4.0-10.0)
[2018-11-16 18:23] LABS: BILIRUBIN,TOTAL 0.8 mg/dL (0.2-1); BLOOD UREA NITROGEN 9.2 mg/dL (7-18); CALCIUM 10.3 mg/dL (8.5-10.1); CREATININE 0.8 mg/dL (0.55-1.3); INR 1.14 (0.83-1.09); POTASSIUM 4.2 mmol/L (3.5-5.1); PROTHROMBIN TIME (PATIENT) 13.5 SEC (9.7-13.0); TOT PROT 8.2 g/dl (6.4-8.2)
[2018-11-16 21:45] VITALS: BP 116/67; PULSE 76; TEMP 97.6
== END 2018-11-16 21:15 | disposition home or self-care (01) ==
LOC: JER 12:48
DX: K80.60 Calculus of gallbladder and bile duct with cholecystitis, unspecified, without obstruction (principal)
CPT/HCPCS: 36415; 76705-TC; 80053; 83690; 84703; 85025; 85610; 85730; 86850; 86900; 86901; 99283-25